=== PATIENT | female | born 1945 | race Caucasian/White ===

== ENCOUNTER 2020-10-14 08:00 | Emergency (ER) | payer MEDICARE, OTHER, SELFPAY ==
--- NOTE | ~2020-10-14 | XR_ITS ---
EXAMINATION: XR RIBS, LEFT CLINICAL INFORMATION: Trauma COMPARISON: No prior exam available. TECHNIQUE: Chest frontal, 3 views left rib series FINDINGS: RIBS: Nondisplaced fracture of the left 5 through ninth ribs LUNGS AND ADRIANA: There is atelectasis at left lung base. PLEURA: There is a small left apical pneumothorax. HEART: The heart is normal in size. MEDIASTINUM: The mediastinum is within normal limits.. XR/XR ribs LT min 3V w CXR1V IMPRESSION: 1. Mildly displaced fracture of the left fifth through ninth ribs. 2. Small left apical pneumothorax. No evidence of tension. 3. Atelectasis left lung base. (Referring physician staff is being called, to be alerted of the above findings and recommendations.) AJ
[2020-10-14 08:15] VITALS: BP 141/67; PULSE 98; RESP 18; TEMP 36.6; O2SAT 99; BMI 23.3
--- NOTE | 2020-10-14 08:21 | ED.FALL ---
HPI - Fall General Chief Complaint: Fall Stated Complaint: FALL Time Seen by Provider: 10/14/20 08:14 Source: patient Mode of arrival: ambulatory Limitations: no limitations History of Present Illness HPI Narrative: This is a 75 years old female presented to the emergency department fully ambulatory with a chief complaint of left chest wall pain. She states that she fell yesterday about 4 stairs his since then he has been complaining of left chest wall pain. She denies any neck pain hips pain no head injury no LOC. The the fall was mechanical Onset (ago): day(s) (1) Fall from: down stairs (#) (4) Fall witnessed: no Place fall occurred: home Loss of consciousness: none Severity: moderate Quality: sharp Related Data Allergies Allergy/AdvReac Type Severity Reaction Status Date / Time penicillin G [Penicillin G] Allergy Mild RASH Unverified 03/30/20 17:42 Review of Systems Review of Systems: Yes all other systems are reviewed and are negative Eyes: Eyes: Reports as per HPI and Denies loss of vision ENT: Reports system reviewed and no additional complaints, except as documented Cardiovascular: Cardiovascular: Reports no additional cardiovascular complaints Respiratory: Respiratory: Reports no additional respiratory complaints Gastrointestinal: Gastrointestinal: Reports no additional gastrointestinal complaints Musculoskeletal: Musculoskeletal: Denies abnormal gait, Denies back pain, Denies myalgias, Denies atrophy, Denies arthralgias and Denies numbness Neurologic: Denies abnormal gait, Denies loss of vision, Denies memory loss, Denies numbness and Denies Other visual disturbances Psychiatric: Psychiatric: Denies memory loss [facility] Social History Social History Advance Directives: No Advance Directives Information Provided: No Physical Exam Vital Signs: Vital Signs: Last Vital Signs Temp 97.8 F 10/14/20 08:15 Pulse 98 10/14/20 08:15 Resp 18 10/14/20 08:15 BP 141/67 H 10/14/20 08:15 Pulse Ox 99 10/14/20 08:15 Body Mass Index 23.3 Patient is awake alert oriented x3 not acute distress HENMT: Other: Examination the head eyes nose mouth throat within normal limit Neck: Other: Neck exam i.e. full range of motion no tenderness whatsoever Chest: Other: Lungs are clear there is tenderness in the left chest wall Resp: Auscultation: clear to auscultation bilaterally Cardio: Other: Regular rate rhythm a GI: Other: Abdomen is soft not tender no guarding and no rebound Skin: Other: No rash no bruises Course Course Course Narrative: Chest x-ray showed the 5 rib fracture in the left 5 to 9 she also has a small left apical pneumothorax. At this time will call [facility] Trauma Service ,anticipate transferred to [facility]. Reevaluation(s) Reevaluation #1: I spoke with the coordinator of online programs [facility] Radha, I also spoke with the trauma attending Dr Tucker patient was accepted in transfer. I spoke also with daughter the patient. Time: 09:50 MDM - Fall Imaging Data Chest x-ray: Radiologist's impression: RIBS: Nondisplaced fracture of the left 5 through ninth ribs LUNGS AND ADRIANA: There is atelectasis at left lung base. PLEURA: There is a small left apical pneumothorax. HEART: The heart is normal in size. MEDIASTINUM: The mediastinum is within normal limits.. XR/XR ribs LT min 3V w CXR1V IMPRESSION: 1. Mildly displaced fracture of the left fifth through ninth ribs. 2. Small left apical pneumothorax. No evidence of tension. 3. Atelectasis left lung base. (Referring physician staff is being called, to be alerted of the above findings and recommendations.) AJ Dictated By:SARAH DE OLIVEIRA MDSigned By:<Electronically signed by SARAH DE OLIVEIRA MD in OV>10/14/20 0917 DD/ [id number]/TT: Harbormaster: Critical Care Time Critical Care Time Critical Care Time: Yes (Significant chest trauma with pneumothorax, time with the patient/transfer) Total Critical Care Time: 45 Attestation: Significant chest trauma, pneumothorax multiple ribs fracture, spoke with the coordinator of online programs [facility] ;with attending trauma surgeon ;with the daughter of the patient Discharge Plan Discharge Clinical Impression: Pneumothorax on left, Ribs, multiple fractures Patient Disposition: er [facility] Transfer Details: Trauma related PNX and multiple ribs fx
[2020-10-14] MEDS: HYDROcodone Bit/Acetam 5/325 TABLET 1 TAB PO ×2 (08:30→09:18)
[2020-10-14] MEDS: Morphine Sulfate 4 MG/ML CARTRIDGE IVPUSH (10:08)
[2020-10-14] MEDS: ondansetron HCL 4 MG/2 ML VIAL IVPUSH (10:08)
== END 2020-10-14 10:56 | disposition short-term general hospital (02) ==
PROVIDERS: Emergency Provider Emergency Medicine; PCP Internal Medicine
DX: S27.0XXA Traumatic pneumothorax, initial encounter (principal); S22.42XA Multiple fractures of ribs, left side, initial encounter for closed fracture; W10.8XXA Fall (on) (from) other stairs and steps, initial encounter; J98.11 Atelectasis; Y93.9 Activity, unspecified; Y92.019 Unspecified place in single-family (private) house as the place of occurrence of the external cause; Y99.9 Unspecified external cause status
CPT/HCPCS: 71101; 96374; 96375; 99285; J2270; J2405